=== PATIENT | male | born 1960 | race Two or more races ===

== ENCOUNTER 2023-07-07 23:27 | Emergency (ER) | payer BC, OTHER ==
[~2023-07-07] VITALS: Ht 185.4 cm; Wt 95.3 kg
[2023-07-07] MEDS ORDERED: KETOROLAC TROMETHAMINE INJ 30 MG/ML VIAL ONE (23:55)
[2023-07-08] MEDS: KETOROLAC TROMETHAMINE 15 MG/ML VIAL IV ONE (00:01)
[2023-07-08] MEDS: IV NS 0.9% 1,000 ML BAG IV ONE ×2 (00:01→02:17)
[2023-07-08 00:11] LABS: BASOPHILS # (AUTO) 0.1 K/uL (0.0-0.2); BASOPHILS % (AUTO) 1.1 % (0.0-2.0); EOSINOPHILS % (AUTO) 7.7 % (0.0-6.0); HEMATOCRIT 42 % (39-51); HEMOGLOBIN 14.3 g/dL (13.5-17.5); LYMPHOCYTES # (AUTO) 1.6 K/uL (0.8-4.8); MEAN CORPUSCULAR HEMOGLOBIN 31 PG (26.0-33.0); MEAN CORPUSCULAR HGB CONC 34 g/dl (31.0-36.0); MEAN CORPUSCULAR VOLUME 90 fL (80-96); MONOCYTES # (AUTO) 0.7 K/uL (0.1-1.30); MONOCYTES % (AUTO) 5.2 % (2.0-12.0); NEUTROPHILS # (AUTO) 9.7 K/uL (1.8-8.9); PLATELET COUNT (AUTO) 215 K/uL (150-450); RED BLOOD CELL COUNT(AUTO) 4.64 MIL/uL (4.5-6.0); RED CELL DISTRIBUTION WIDTH 13.7 % (11.5-15.0); WHITE BLOOD COUNT (AUTO) 13.1 K/uL (4.3-11.0)
[2023-07-08 00:36] LABS: CALCIUM, SERUM 8.5 mg/dL (8.5-10.1); CREATININE 1.2 mg/dL (0.6-1.3); POTASSIUM 3.7 mmol/L (3.5-5.1)
[2023-07-08 00:49] LABS: ALBUMIN 3.4 g/dL (3.4-5.0); BILIRUBIN,DIRECT 0.2 mg/dL (0.0-0.2); BILIRUBIN,TOTAL 0.6 mg/dL (0.2-1.0); TOTAL PROTEIN, SERUM 6.8 g/dL (6.4-8.2)
[2023-07-08] MEDS ORDERED: TAMSULOSIN 0.4 MG CAP.SR.24H ONE (02:12)
[2023-07-08] MEDS: TAMSULOSIN 0.4 MG CAP.SR.24H PO ONE (02:17)
[2023-07-08 03:02] LABS: APPEARANCE,URINE CLEAR (CLEAR); BILIRUBIN,URINE NEGATIVE (NEGATIVE); BLOOD, URINE NEGATIVE Ery/uL (NEGATIVE); COLOR,URINE YELLOW (YELLOW); KETONES,URINE NEGATIVE (NEGATIVE); LEUKOCYTE ESTERASE ,URINE NEGATIVE (NEGATIVE); NITRITE, URINE NEGATIVE (NEGATIVE); PROTEIN,URINE NEGATIVE (NEGATIVE); UGLUCOSE NEGATIVE (NEGATIVE); UROBILINOGEN,URINE 0.2 EU/dL (0.2)
[2023-07-08] MEDS ORDERED: HYDR-4303 PO (03:12)
[2023-07-08] MEDS ORDERED: TAMS-12 PO (03:12)
[2023-07-08] MEDS ORDERED: IBUP-1953 PO (03:12)
[2023-07-08 03:56] VITALS: BP 140/80; TEMP 98.1; O2SAT 100
== END 2023-07-08 03:56 | disposition home or self-care (01) ==
LOC: ER 23:29
DX: N23 Unspecified renal colic (principal); N20.1 Calculus of ureter; Z60.2 Problems related to living alone
CPT/HCPCS: 99285; 74176; 96374; 96361 ×2; 85025; 80048; 83690; 80076; 36415; 81003; J1885; J7030 ×3